=== PATIENT | male | born 1985 | race Two or more races ===

== ENCOUNTER 2020-04-19 13:57 | Emergency (ER) | payer OTHER ==
[~2020-04-19] VITALS: Ht 180.3 cm; Wt 118.0 kg
[2020-04-19] MEDS ORDERED: DEXAMETHASONE 4 MG TABLET PO ONE (15:00)
[2020-04-19] MEDS ORDERED: DEXAMETHASONE 4 MG TABLET ONE (15:22)
[2020-04-19 15:52] VITALS: BP 135/86
== END 2020-04-19 16:05 ==
LOC: ED 15:39
DX: J18.9 Pneumonia, unspecified organism (principal); R50.9 Fever, unspecified; M79.10 Myalgia, unspecified site; R09.81 Nasal congestion; R06.00 Dyspnea, unspecified; R19.7 Diarrhea, unspecified; R06.02 Shortness of breath; R07.89 Other chest pain; R05 Cough
CPT/HCPCS: 71045; 93005; 99283